=== PATIENT | female | born 1955 | race Caucasian/White ===

== ENCOUNTER → 2016-11-14 | Outpatient (CLI) | payer OTHER | LOC: BMCIMAGING 08:25 | PROVIDERS: ATTEND Internal Medicine | DX: Z12.31 Encounter for screening mammogram for malignant neoplasm of breast (principal) | CPT/HCPCS: G0202 ==

== ENCOUNTER → 2017-11-22 | Outpatient (CLI) | payer OTHER | LOC: BMCIMAGING 13:06 | PROVIDERS: ATTEND Internal Medicine | DX: Z12.31 Encounter for screening mammogram for malignant neoplasm of breast (principal) ==

== ENCOUNTER 2018-02-14 20:19 | Emergency (ER) | payer OTHER ==
[2018-02-14] MEDS ORDERED: NS 1,000 ML IV ONE (21:26)
[2018-02-14 21:31] LABS: PLATELET COUNT 251 10^3/uL (150-400)
[2018-02-14] MEDS ORDERED: DICYCLOMINE 10 MG CAP PO ONE (21:51)
--- NOTE | 2018-02-14 22:24 | EDPHY ---
HPI/HX/ROS/PE/MDM Narrative: CLINICAL IMPRESSION: Abdominal cramping, diarrhea and nausea ASSESSMENT/PLAN: This is a 62-year-old female with reported history of hypotension and hypothyroidism who presents to the emergency department with 3 hr of lower abdominal cramping, nonbloody diarrhea x3 episodes, and nausea. Vital signs stable, no hypotension or tachycardia. Abdomen is soft with no focal peritoneal findings. No significant lab abnormalities. Patient received Bentyl and IV fluids and was able to tolerate p.o. Liquids well. I suspect she has a viral gastroenteritis or food poisoning. She will follow up with primary care in the next 24 hr for recheck. Home care discussed, warning signs return to ED sooner outlined in person and discharge papers. DIFFERENTIAL DX: Abdominal pain includes but not limited to viral gastroenteritis, infectious diarrhea, inflammatory bowel disease, urinary tract infection, pyelonephritis, infection, salpingitis, TOA, ovarian torsion, ovarian cyst, endometriosis, uterine fibroids, acute appendicitis, acute diverticulitis, small-bowel obstruction, constipation ED PROCEDURES: See lab results below ED COURSE: 10:30 p.m.: Patient reassessed, still having some abdominal cramping, has not had a bowel movement in the ED. No nausea or vomiting. No significant lab abnormalities. Vitals remained stable. She tolerated p. O.. I feel patient can be safely discharged. Follow-up care discussed and patient agrees. CHIEF COMPLAINT: Diarrhea, nausea HPI: This is a 62-year-old female with reported medical history of hypotension and hypothyroidism who presents to the emergency department with approximately 3 hr of nausea and diarrhea. Patient reports she thinks she ate something bad. No reported fever, chills, severe abdominal pain, vomiting, recent travel, recent antibiotics, or new medications. She had an omelet and a salad earlier today. She did notice some blood on the tissue paper when she wiped but no bloody stools. No reported history of Crohn's or ulcerative colitis. She has not had a bowel movement since arrival in the ED and states she had 3 episodes of diarrhea before arrival. PM: Hypotension, hypothyroidism Pertinent Past Surgical History: None reported Family History: No family history of colon cancer, Crohn's or ulcerative colitis Social History: Nonsmoker, REVIEW OF SYSTEMS: All other systems negative Constitutional: No fever, no chills, +appetite change. Cardiovascular: No chest pain, no palpitations. Respiratory: No cough, no shortness of breath. Gastrointestinal: No abdominal pain, no vomiting, +diarrhea. Genitourinary: No hematuria, dysuria, flank pain, pelvic pain Musculoskeletal: No back pain, joint swelling, joint pain, myalgias. Skin: No rashes, color change. Neurological: No headache, dizziness, weakness. PHYSICAL EXAM: General Appearance: Alert, oriented, appropriate, cooperative, NAD, well hydrated, non-toxic appearing, VSS, no hypoxia. Respiratory: There are no retractions, lungs are clear to auscultation. Cardiac: Regular rate and rhythm, no murmurs or gallops. Gastrointestinal: Abdomen is soft, nontender, bowel sounds normal, no masses/ hernia, no rigidity, guarding or focal peritoneal findings. Neurological: Alert and oriented x 3, CN 2-12 grossly intact, normal gait no ataxia, DTR's intact, normal sensation and strength Skin: Warm, dry, no rashes, no nodules on palpation. MEDICAL DECISION MAKING: Patient was seen independently. Secondary supervising physician at time of evaluation was Dr Cerna . Diagnosis: Viral gastroenteritis, nausea, diarrhea. New, requires workup Summary: See Assessment and Plan for summary of ED visit Clinical lab tests: ordered / reviewed. Patient Progress: Improved. (Rao Rincon) ED Course: The patient was evaluated and managed by the Physician Manager Books. My co- signature indicates that I have reviewed this chart and I agree with the findings and plan of care as documented. I am the secondary supervising physician. (Patt Cerna) - Data Points Laboratory Results: Laboratory Results 02/14/18 20:45 02/14/18 20:45 02/14/18 02/14/18 20:45 20:45 WBC 11.82 10^3/uL H 10^3/uL (3.80-9.50) RBC 4.51 10^6/uL 10^6/uL (4.18-5.33) Hgb 13.2 g/dL g/dL (12.6-16.3) Hct 39.6 % % (38.0-47.0) MCV 87.8 fL fL (81.5-99.8) MCH 29.3 pg pg (27.9-34.1) MCHC 33.3 g/dL g/dL (32.4-36.7) RDW 14.1 % % (11.5-15.2) Plt Count 251 10^3/uL 10^3/uL (150-400) MPV 11.3 fL fL (8.7-11.7) Neut % (Auto) 76.2 % H % (39.3-74.2) Lymph % (Auto) 18.4 % % (15.0-45.0) [place] % (Auto) 4.7 % % (4.5-13.0) Eos % (Auto) 0.1 % L % (0.6-7.6) Baso % (Auto) 0.3 % % (0.3-1.7) Nucleat RBC Rel Count 0.0 % % (0.0-0.2) Absolute Neuts (auto) 9.00 10^3/uL H 10^3/uL (1.70-6.50) Absolute Lymphs (auto) 2.18 10^3/uL 10^3/uL (1.00-3.00) Absolute Monos (auto) 0.56 10^3/uL 10^3/uL (0.30-0.80) Absolute Eos (auto) 0.01 10^3/uL L 10^3/uL (0.03-0.40) Absolute Basos (auto) 0.04 10^3/uL 10^3/uL (0.02-0.10) Absolute Nucleated RBC 0.00 10^3/uL 10^3/uL (0-0.01) Immature Gran % 0.3 % % (0.0-1.1) Immature Gran # 0.03 10^3/uL 10^3/uL (0.00-0.10) Sodium 141 mEq/L mEq/L (135-145) Potassium 3.7 mEq/L mEq/L (3.3-5.0) Chloride 107 mEq/L mEq/L (97-110) Carbon Dioxide 22 mEq/l mEq/l (22-31) Anion Gap 12 mEq/L mEq/L (6-14) BUN 17 mg/dL mg/dL (7-23) Creatinine 0.8 mg/dL mg/dL (0.6-1.0) Estimated GFR > 60 Glucose 120 mg/dL H mg/dL (70-100) Calcium 10.2 mg/dL mg/dL (8.5-10.4) Total Bilirubin 0.4 mg/dL mg/dL (0.1-1.4) Conjugated Bilirubin 0.2 mg/dL mg/dL (0.0-0.5) Unconjugated Bilirubin 0.2 mg/dL mg/dL (0.0-1.1) AST 24 IU/L IU/L (14-46) ALT 20 IU/L IU/L (9-52) Alkaline Phosphatase 64 IU/L IU/L (38-126) Total Protein 7.3 g/dL g/dL (6.3-8.2) Albumin 4.6 g/dL g/dL (3.5-5.0) Lipase 442 IU/L H IU/L (23-300) Medications Given: Discontinued Medications Dicyclomine HCl (Bentyl) 20 mg PO EDNOW ONE Stop: 02/14/18 21:52 Last Admin: 02/14/18 21:56 Dose: 20 mg Sodium Chloride (Ns) 1,000 mls @ 0 mls/hr IV EDNOW ONE; Wide Open PRN Reason: Protocol Stop: 02/14/18 21:27 Last Admin: 02/14/18 21:39 Dose: 1,000 mls General Time Seen by Provider: 02/14/18 21:09 Initial Vital Signs: Initial Vital Signs Temperature (C) 36.7 C 02/14/18 20:22 Heart Rate 69 02/14/18 20:22 Respiratory Rate 18 02/14/18 20:22 Blood Pressure 117/88 H 02/14/18 20:22 O2 Sat (%) 99 02/14/18 20:22 O2 Delivery Mode Room Air Allergies/Adverse Reactions: erythromycin base Adverse Reaction (Verified 02/14/18 20:22) UPSET STOMACH DOS [place] Allergy (Intermediate, Uncoded 02/14/18 20:22) Hives Home Medications: Medication Instructions Recorded LEVOXYL 04/03/09 Dicyclomine [Bentyl 20 MG (*)] 20 mg PO Q8 PRN #12 tab 02/14/18 Departure - Departure Disposition: Home, Routine, Self-Care Clinical Impression: Diarrhea Qualifiers: Diarrhea type: unspecified type Qualified Code(s): R19.7 - Diarrhea, unspecified Condition: Good Instructions: Acute Diarrhea (ED) Additional Instructions: DISCHARGE INSTRUCTIONS FROM YOUR DOCTOR Thank you for visiting our emergency department today. Please keep in mind that discharge from the emergency department does not mean that there is nothing wrong - it simply means that we have not identified an emergency condition that requires further evaluation or treatment in the hospital. You should always plan to follow up with primary care for re-evaluation of your condition in the next 2-3 days. If you have been referred to a specialist, please call as soon as possible (today or tomorrow) to schedule your follow up appointment at the appropriate time. You are likely suffering from either viral gastroenteritis or mild food poisoning. You had no significant lab abnormalities. Please stay well hydrated , eat a bland diet, and follow up with her primary care doctor. You may use Imodium for 1-2 days if needed. A prescription for Bentyl was given for cramping. Please return to the emergency department for high fevers, persistent vomiting or diarrhea, bloody stools, severe abdominal pain, or any other concern. People present with illnesses and injuries in different ways, and it is always possible that we have missed something. You may always return for re-evaluation if symptoms worsen or if they are not improving or if you develop new/different symptoms. Again, thank you for choosing our emergency department. We hope that you feel better. Referrals: Meagan Mckeon MD [Primary Care Provider] - As per Instructions Prescriptions: Dicyclomine [Bentyl 20 MG (*)] 20 mg PO Q8 PRN #12 tab PRN Reason: Diarrhea/Loose Stools
[2018-02-14 22:39] VITALS: BP 116/74
== END 2018-02-14 22:39 | disposition home or self-care (01) ==
DX: R19.7 Diarrhea, unspecified (principal); E86.9 Volume depletion, unspecified; I95.9 Hypotension, unspecified; E03.9 Hypothyroidism, unspecified

== ENCOUNTER 2018-09-09 23:00 | Emergency (ER) | payer OTHER | END 2018-09-10 01:35 | disposition home or self-care (01) ==